=== PATIENT | female | born 1995 | race Caucasian/White ===

== ENCOUNTER 2021-11-08 13:49 | Emergency (ER) | payer MEDICAID, SELFPAY ==
[2021-11-08 14:00] VITALS: BP 117/61; PULSE 126; RESP 20; TEMP 36.8; O2SAT 100; BMI 19.0
[2021-11-08] MEDS: Ondansetron ODT 4 MG TAB.RAPDIS SUBLINGUAL (14:05)
[2021-11-08 16:22] LABS: MANUAL DIFF FLAG NO
[2021-11-08 16:23] LABS: Hematocrit 34.8 % (37.0-47.0); Hemoglobin 11.7 g/dl (12.0-16.0); Imm Gran Abs Auto 0.01 X10*3/uL (0.00-0.03); Imm Gran Pct Auto 0.1 % (0.0-0.4); Lymphocytes Absolute Auto 0.3 X10*3/uL (1.2-4.9); Lymphocytes Percent Auto 4.2 % (20-40); Mean Corpuscular HGB Conc 33.6 g/dl (31.0-35.0); Mean Corpuscular Hemoglobin 30.8 pg (27.0-33.0); Mean Corpuscular Volume 91.6 fL (80.0-98.0); Monocytes Absolute Auto 0.2 X10*3/uL (0.1-1.2); Monocytes Percent Auto 2.8 % (2-11); Neutrophils Absolute Auto 6.4 x10*3/uL (2.0-8.3); Neutrophils Percent Auto 92.9 % (45-73); Platelet Count 196 X10*3/uL (160-400); Red Cell Distribution Width 12.5 % (11.0-16.0); SCAN SMEAR FLAG 1; White Blood Count 6.9 X10*3/uL (4.8-10.8)
[2021-11-08 16:36] LABS: Anion Gap 13 (12-20); Blood Urea Nitrogen 15 mg/dL (9-16); Calcium 9.1 mg/dL (8.4-10.2); Carbon Dioxide 23 mmol/L (22-29); Chloride 105 mmol/L (96-108); Creatinine Clr Calc Pharmacy 112.7; Estimated Glomerular Filt Rate > 60; Glucose Random 103 mg/dL (60-115); Potassium 4.2 mmol/L (3.3-5.1); Sodium 137 mmol/L (135-145)
[2021-11-08 19:47] LABS: Appearance Urine HAZY; Color Urine YELLOW; Glucose Urine UA NEG (NEG); Leukocyte Esterase Urine NEG (NEG); Nitrite Urine NEG (NEG); PH 6.5 (5.0-8.0); Urine Blood NEG (NEG); Urine Ketones >=80 MG/DL (NEG); Urine Protein NEG (NEG-TRACE)
[2021-11-08 19:50] LABS: UPreg QC Valid YES; Urine Pregnancy NEGATIVE (NEGATIVE)
[2021-11-08] MEDS: Acetaminophen 325 MG TABLET 650 MG PO (20:20)
== END 2021-11-08 22:07 | disposition left against medical advice (07) ==
PROVIDERS: Emergency Provider Emergency Medicine
DX: R11.2 Nausea with vomiting, unspecified (principal); M54.9 Dorsalgia, unspecified
CPT/HCPCS: 36415; 80048; 81003; 81025; 85025; 99283

== ENCOUNTER 2021-12-12 20:54 | Emergency (ER) | payer MEDICAID, SELFPAY ==
[2021-12-12 21:09] VITALS: BP 132/92; PULSE 90; RESP 18; TEMP 36.6; O2SAT 99; BMI 18.6
[2021-12-12 21:29] VITALS: BP 119/75; PULSE 92; RESP 16; TEMP 36.8; O2SAT 100
--- NOTE | 2021-12-12 21:33 | PC.NURSE ---
pt a&ox3, vss, pt c/o abd pain starting yesterday while holding urine/waiting to urinate, pain resolved, but came back today around 1900. pt unable to provide urine sample at this time. pending ED provider.
--- NOTE | 2021-12-12 22:43 | ED.ABDPAIN ---
HPI - Abdominal Pain General Chief Complaint: Abdominal Pain Stated Complaint: abdominal pain, back pain Time Seen by Provider: 12/12/21 22:31 Source: patient Mode of arrival: ambulatory Limitations: no limitations History of Present Illness HPI narrative: 26-year-old female who presents emergency department for evaluation of abdominal pain and vaginal discharge. Patient states that over the past 2 days she has noticed a clear liquid the vaginal discharge which is unusual for her. She has also developed lower abdominal pain. She runs or hand across her lower abdomen when asked to localize the pain. She states the pain is an intermittent, sharp pain which is 7/10 at its worst. The patient is and she states she is sexually active. She last had intercourse 2 days prior. She states that the intercourse was painful this is not unusual for her. The patient's last menstrual period was 2 weeks prior. She is a and states that she had a miscarriage in 2020. She denied fever, chills, vomiting, diarrhea, frequency, dysuria. She does have nausea. MD elicited complaint: abdominal pain Onset (ago): day(s) (2) Pain Consistency: intermittent Location: RLQ, LLQ and suprapubic Severity: severe Pain scale (0-10): 7 Quality: sharp Radiation: back (Lower back) Migration to: no migration Exacerbating factors: other ([place]) Relieving factors: nothing Associated symptoms: nausea and other (Clear vaginal discharge) Related Data Date of Last Menstrual Period: 11/28/21 Patient : No Previous Rx's Medication Instructions Recorded doxycycline hyclate 100 mg tablet 100 mg PO Q12H 14 Days #28 tab 12/12/21 metronidazole 500 mg tablet 500 mg PO BID 14 Days #28 tab 12/12/21 Allergies Allergy/AdvReac Type Severity Reaction Status Date / Time No Known Allergies Allergy Verified 11/08/21 14:04 Review of Systems Review of Systems Yes all other systems are reviewed and are negative [facility] Past Medical History FOR[facility] Narrative: Past medical history: Asthma, , 1 miscarriage 2021. Past surgical history: None. Social history: She is . She denies tobacco use. She denies alcohol use. She denies drug use. Medical History Asthma No known health problems Date of Last Menstrual Period: 11/28/21 Social History Social History Alcohol intake: never Patient Tobacco Use Status: Never used Tobacco Use of substances other than those prescribed or required for medical reasons: No Advance Directives: No Advance Directives Information Provided: No Patient : No Physical Exam ED Vital Signs: Vital Signs - 24 hr 12/12/21 21:09 12/12/21 21:29 Temperature 98 F 98.3 F Pulse Rate 90 92 Respiratory Rate 18 16 Blood Pressure 132/92 H 119/75 Pulse Oximetry 99 100 BMI result Body Mass Index 18.6 Const General: cooperative and no acute distress Orientation/consciousness: oriented to person and oriented to place Limitations: no limitations HENMT Head: Yes normal to inspection, Yes normocephalic and Yes atraumatic Ears: external ears normal General nose exam: Normal external nose present Face and sinus: Yes normal facial exam Mouth: Normal oral and palatal mucosa present Throat: Yes posterior oropharynx normal Eyes General: appearance normal, both eyes and all related structures Pupils: Equal, round and reactive pupils present Neck Neck: Yes normal visual inspection, Yes no lymphadenopathy, Yes trachea midline and Yes supple Chest Chest palpation & inspection: normal inspection of the chest and normal palpation of entire chest wall Resp Effort & Inspection: normal respiratory effort and able to speak in complete sentences Auscultation: clear to auscultation bilaterally Cardio Rate: regular rate Rhythm: regular rhythm Heart sounds: S1 normal heart sound present, S2 normal heart sound present and no murmurs GI Inspection: Yes normal to inspection Palpation (GI): Soft to palpation, Tenderness to palpation present (GI) in the LLQ (Mild), in the RLQ (Mild) and suprapubicly (Moderate) and no guarding Auscultation: normal bowel sounds General: Yes no CVA tenderness Back/Spine/Pelvis Back: no CVA tenderness Skin General skin exam: no rashes or lesions noted Neuro General: oriented to person and oriented to place Cranial nerves: Yes CN's II-XII intact bilaterally and Yes Equal, round and reactive pupils present Cognition (Neuro): normal cognition Motor exam (neuro): 5/5 motor strength present throughout Extrem General: Yes normal to inspection Psych Appearance: grossly normal Speech and movement: Normal speech and movement present Affect: normal affect Attitude: cooperative Thought process: Normal thought process present Thought content: Normal thought content present Course Course Course Narrative: 26-year-old female LMP 2 weeks prior, presents emergency department for evaluation of lower abdominal pain and clear vaginal discharge x2 days. Vital signs were normal. Abdominal exam revealed lower abdominal tenderness with increased tenderness in the suprapubic area. Pelvic exam did reveal a whitish cervical discharge, the cervix appears to be inflamed, she had [id number] cervical motion tenderness and tenderness with palpation over her uterus and adnexa bilaterally. Patient's urinalysis was negative and urine test was negative. Patient's presentation physical findings are consistent with pelvic inflammatory disease. The patient was treated with ceftriaxone 500 mg IM, doxycycline 100 mg orally and Flagyl 500 mg orally. She was given a prescription for doxycycline and Flagyl for 14 days. The patient is breast-feeding a 1-1/2-year-old child. I told her to pump and dump for 14 days and then 4 days after completing her medications she can restart breast-feeding. 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 MDM - Abdominal Pain Lab Data Labs: Lab Results 12/12/21 12/12/21 Range/Units 22:31 22:32 Urine Color YELLOW Urine Appearance CLEAR Urine pH 7.0 (5.0-8.0) Ur Specific Roll 1.025 (1.005-1.025) Urine Protein NEG (NEG-TRACE) MG/DL Urine Glucose (UA) NEG (NEG) MG/DL Urine Ketones 5 (NEG) MG/DL Urine Blood NEG (NEG) Urine Nitrite NEG (NEG) Ur Leukocyte Esterase NEG (NEG) Urine Test NEGATIVE (NEGATIVE) Discharge Plan Discharge Clinical Impression: Acute pelvic inflammatory disease Patient Disposition: Home, Self-Care Additional Instructions: Pelvic inflammatory disease instructions: Your presentation and physical findings are consistent with pelvic inflammatory disease (PID). Approximately 30% of the time, pelvic inflammatory disease is caused by sexually transmitted diseases such as Trichomonas, gonorrhea or chlamydia. Approximately 70% of the time, pelvic inflammatory disease is caused by abnormal bacteria (anaerobic bacteria) in your vagina that can cause an infection Medications You received ceftriaxone 500 mg intramuscularly, doxycycline 100 mg and Flagyl (metronidazole) 500 mg here in the emergency department Take doxycycline 100 mg, 1 pill twice a day for 14 days. Take metronidazole 500 mg, 1 pill twice a day for 14 days. These 3 antibiotics treat sexually transmitted diseases such as gonorrhea, chlamydia and Trichomonas as well as anaerobic bacteria that can cause pelvic inflammatory disease. Take ibuprofen 200 mg pills, 3 pills every 6 hours as needed for pain. Take Tylenol (acetaminophen) 500 mg pills, 2 pills every 4 to 6 hours as needed for pain. Follow-Up Follow-up with your gynecology in 10-14 days. Pending laboratory tests: The doctor that follows up will need to review the following results with you: Bacterial vaginosis testing Gonorrhea and chlamydia (cervical swab) Trichomonas testing You can also check these results on the patient portal. Your test today was negative. Your urinalysis was also negative for infection. Breast-feeding instructions: You should pump both breasts and dump the milk out for the next 14 days. If you do not continue to pump your breast milk then you may stop making breast milk. Four days after you complete your antibiotics you can start breast-feeding again. Return precautions: Please return to the emergency department if your symptoms get worse if your pain does not go away in 24-48 hours or if you develop any symptoms that are concerning to you. Prescriptions: New metronidazole 500 mg tablet 500 mg PO BID 14 Days Qty: 28 0RF doxycycline hyclate 100 mg tablet 100 mg PO Q12H 14 Days Qty: 28 0RF
[2021-12-12 22:45] LABS: Appearance Urine CLEAR; Color Urine YELLOW; Glucose Urine UA NEG (NEG); Leukocyte Esterase Urine NEG (NEG); Nitrite Urine NEG (NEG); Specific Gravity - Urine 1.025 (1.005-1.025); Urine Blood NEG (NEG); Urine Ketones 5 MG/DL (NEG); Urine Protein NEG (NEG-TRACE)
[2021-12-12 22:48] LABS: UPreg QC Valid YES; Urine Pregnancy NEGATIVE (NEGATIVE)
[2021-12-12] MEDS: metroNIDAZOLE 500 MG TABLET PO (23:41)
[2021-12-12] MEDS: cefTRIAXone sodium 500 MG, Lidocaine HCl 1 % MPF 1 ML IM (23:42)
--- NOTE | 2021-12-12 23:43 | PC.NURSE ---
I attempted to scan these medicines prior to administering them unsuccessfully. I was unable to log into the computer after multiple attempts. I verified correct med, orrect dose, correct patient, correct route, correct time prior to administering.
[2021-12-13 03:26] LABS: CT PCR NOT DETECTED (Not Detect.); NG PCR NOT DETECTED (Not Detect.)
[2021-12-13 10:52] LABS: BV Int Neg Control Negative (Negative); BV Int Pos Control Positive (Positive)
== END 2021-12-12 23:45 | disposition home or self-care (01) ==
PROVIDERS: Emergency Provider Emergency Medicine Emergency Medical Services
DX: N73.9 Female pelvic inflammatory disease, unspecified (principal); N89.8 Other specified noninflammatory disorders of vagina; M54.50 Low back pain, unspecified; R10.31 Right lower quadrant pain; R10.32 Left lower quadrant pain; Z79.899 Other long term (current) drug therapy
CPT/HCPCS: 81003; 81025; 87480; 87491; 87510; 87591; 87660; 96372; 99284; J0696

== ENCOUNTER 2022-03-12 16:44 | Emergency (ER) | payer MEDICAID, SELFPAY ==
--- NOTE | ~2022-03-12 | XR_ITS ---
EXAMINATION: XR HAND, RIGHT CLINICAL INFORMATION: Pain and swelling COMPARISON: None TECHNIQUE: PA, lateral, and oblique views of the right hand. FINDINGS: Nondisplaced oblique fracture through the neck of the fifth metacarpal. There is soft tissue swelling. The fracture does not involve the articular surfaces. No dislocations. XR/XR hand RT 2V IMPRESSION: Nondisplaced oblique boxer fracture through the neck of the fifth metacarpal.
[2022-03-12 16:49] VITALS: BP 111/84; PULSE 78; RESP 14; TEMP 36.9; O2SAT 98; BMI 19.3
--- NOTE | 2022-03-12 17:28 | PC.NURSE ---
MOTHER REPORTS PATIENTS ANXIETY WAS TOO HIGH TO WAIT TO BE TREATED, PT DID NOT OFFER CONCERNS ABOUT HER ANXIETY DURING TRIAGE. PT LEFT THE WR APPROX 15 MIN AFTER SIGNING IN TO BE SEEN.
== END 2022-03-12 17:28 | disposition left against medical advice (07) ==
PROVIDERS: Emergency Provider Emergency Medicine
DX: S62.366A Nondisplaced fracture of neck of fifth metacarpal bone, right hand, initial encounter for closed fracture (principal); W22.09XA Striking against other stationary object, initial encounter; Y93.9 Activity, unspecified; Y92.9 Unspecified place or not applicable; Y99.9 Unspecified external cause status
CPT/HCPCS: 73120; 99281; 99283

== ENCOUNTER 2022-03-18 00:07 | Emergency (ER) | payer MEDICAID, SELFPAY ==
[2022-03-18 00:17] VITALS: BP 130/82; PULSE 87; RESP 24; TEMP 36.8; O2SAT 100; BMI 19.0
[2022-03-18 00:32] LABS: Basophils Percent Auto 0.3 % (0-2); Eosinophils Absolute Auto 0.2 X10*3/uL (0.0-0.4); Eosinophils Percent Auto 2.6 % (0-4); Hematocrit 33.5 % (37.0-47.0); Hemoglobin 11.4 g/dl (12.0-16.0); Imm Gran Abs Auto 0.01 X10*3/uL (0.00-0.03); Imm Gran Pct Auto 0.2 % (0.0-0.4); Lymphocytes Absolute Auto 3.4 X10*3/uL (1.2-4.9); MANUAL DIFF FLAG NO; Mean Corpuscular Hemoglobin 30.2 pg (27.0-33.0); Mean Corpuscular Volume 88.6 fL (80.0-98.0); Mean Platelet Volume 8.9 fL (9.4-12.3); Monocytes Absolute Auto 0.4 X10*3/uL (0.1-1.2); Monocytes Percent Auto 6.4 % (2-11); Neutrophils Absolute Auto 2.5 x10*3/uL (2.0-8.3); Neutrophils Percent Auto 38.5 % (45-73); Platelet Count 240 X10*3/uL (160-400); Red Blood Count 3.78 X10*6/uL (4.20-5.50); Red Cell Distribution Width 12.6 % (11.0-16.0); White Blood Count 6.4 X10*3/uL (4.8-10.8)
[2022-03-18 00:53] LABS: Anion Gap 16 (12-20); Blood Urea Nitrogen 18 mg/dL (9-16); Calcium 9.9 mg/dL (8.4-10.2); Carbon Dioxide 22 mmol/L (22-29); Chloride 104 mmol/L (96-108); Creatinine Clr Calc Pharmacy 90.4; Estimated Glomerular Filt Rate > 60; Glucose Random 115 mg/dL (60-115); Potassium 3.6 mmol/L (3.3-5.1); Sodium 138 mmol/L (135-145)
[2022-03-18 01:32] LABS: Appearance Urine HAZY; Color Urine YELLOW; Glucose Urine UA NEG (NEG); Leukocyte Esterase Urine NEG (NEG); Nitrite Urine NEG (NEG); Specific Gravity - Urine 1.015 (1.005-1.025); Urine Blood NEG (NEG); Urine Ketones NEG (NEG); Urine Protein NEG (NEG-TRACE)
[2022-03-18 01:34] LABS: UPreg QC Valid YES; Urine Pregnancy NEGATIVE (NEGATIVE)
== END 2022-03-18 04:39 | disposition left against medical advice (07) ==
PROVIDERS: Emergency Provider Emergency Medicine
DX: R10.31 Right lower quadrant pain (principal)
CPT/HCPCS: 36415; 80048; 81003; 81025; 85025; 99282; 99283

== ENCOUNTER 2022-03-29 07:24 | Outpatient (REF) | payer MEDICAID, SELFPAY ==
--- NOTE | ~2022-03-29 | XR_ITS ---
EXAMINATION: XR HAND, RIGHT CLINICAL INFORMATION: Pain in the hand. COMPARISON: 03/12/2022 TECHNIQUE: PA, lateral, and oblique views of the right hand. FINDINGS: Redemonstration of the fracture at the fifth metacarpal neck. Alignment is unchanged. There is some early callus formation. Joint spaces are maintained. XR/XR hand RT min 3V IMPRESSION: Early callus formation at the fifth metacarpal fracture.
== END 2022-03-29 07:25 | disposition home or self-care (01) ==
LOC: HO.HOSX 07:24
PROVIDERS: Visit Provider Physician Assistant
DX: S62.330A Displaced fracture of neck of second metacarpal bone, right hand, initial encounter for closed fracture (principal)
CPT/HCPCS: 29085; 73130; 99202

== ENCOUNTER 2022-04-26 07:21 | Outpatient (REF) | payer MEDICAID, SELFPAY ==
--- NOTE | ~2022-04-26 | XR_ITS ---
EXAMINATION: XR HAND, RIGHT CLINICAL INFORMATION: Pain. Fracture. COMPARISON: Most recent right hand radiographs dated 03/29/2022. TECHNIQUE: PA, lateral, and oblique views of the right hand. FINDINGS: Redemonstration of a 5th metacarpal fracture in unchanged anatomic alignment with interval new bone/callus formation when compared to the prior examination. No new fracture or dislocation. Normal carpal alignment. No joint space narrowing or marginal osteophytes. No osseous erosion. XR/XR hand RT min 3V IMPRESSION: 5th metacarpal fracture in unchanged anatomic alignment with interval new bone/callus formation.
== END 2022-04-26 07:22 | disposition home or self-care (01) ==
LOC: HO.HOSX 07:21
PROVIDERS: Visit Provider Physician Assistant
DX: S62.336D Displaced fracture of neck of fifth metacarpal bone, right hand, subsequent encounter for fracture with routine healing (principal); X58.XXXD Exposure to other specified factors, subsequent encounter
CPT/HCPCS: 73130; 99212

== ENCOUNTER 2024-03-13 16:11 | Emergency (ER) | payer MEDICAID, SELFPAY ==
--- NOTE | 2024-03-13 16:15 | ECG_ITS ---
Test Reason : chest pain Blood Pressure : / mmHG Vent. Rate : 070 BPM Atrial Rate : 070 BPM P-R Int : 142 ms QRS Dur : 088 ms QT Int : 410 ms P-R-T Axes : 047 -22 029 degrees QTc Int : 442 ms Normal sinus rhythm Low voltage QRS Borderline ECG When compared with ECG of 05-APR-2019 17:32, QRS axis Shifted left Referred By: Generic ED Physician Electronically Signed By:KATHRIN PECK MD
[2024-03-13 16:20] VITALS: BP 125/88; PULSE 78; RESP 20; TEMP 36.6; O2SAT 99; BMI 21.9
--- NOTE | 2024-03-13 16:22 | ED.CHESTPAIN ---
HPI - Chest Pain General Chief Complaint: Chest Pain Stated Complaint: Chest pain, hands and face tingling Related Data Previous Rx's ?Medication ?Instructions ?Recorded doxycycline hyclate 100 mg tablet 100 mg PO Q12H 14 days #28 tabs 12/12/21 metronidazole 500 mg tablet 500 mg PO BID 14 days #28 tabs 12/12/21 Allergies Allergy/AdvReac Type Severity Reaction Status Date / Time No Known Allergies Allergy Verified 03/13/24 16:23 PMFSH Past Medical History Medical History Asthma No known health problems Social History Social History Alcohol intake: never Patient Tobacco Use Status: Never used Tobacco Advance Directives: No Advance Directives Information Provided: No Physical Exam Vital Signs: Vital Signs: Last Vital Signs Temp 97.9 F 03/13/24 16:20 Pulse 78 03/13/24 16:20 Resp 20 03/13/24 16:20 BP 125/88 03/13/24 16:20 Pulse Ox 99 03/13/24 16:20 O2 Del Method Room Air 03/13/24 16:20 BMI result Body Mass Index 21.9 Course Course Course Narrative: This is a Rapid Medical Exam performed in triage by Judith Brooks PA-C. Full HPI, ROS and PE to be performed by primary ED provider. 28 year-old F w/ PMHx presenting to the ED c/o intermittent chest pain, SOB, tingling in arms/legs & lips x 2 days. Also reports lightheadedness & heart is racing. Admits sx are improved now compared to when they started PE: anxious, tearful, talking in complete sentences Plan: EKG, labs, CXR Discharge Plan Discharge Clinical Impression: Chest pain Patient Disposition: Left W/O Completing Treatment Prescriptions: No Action metronidazole 500 mg tablet 500 mg PO BID 14 Days Qty: 28 0RF doxycycline hyclate 100 mg tablet 100 mg PO Q12H 14 Days Qty: 28 0RF Discharge Date/Time: 03/13/24 16:54
== END 2024-03-13 16:54 | disposition left against medical advice (07) ==
PROVIDERS: Emergency Provider Emergency Medicine
DX: R07.89 Other chest pain (principal)
CPT/HCPCS: 93005; 99281; 99283

== ENCOUNTER → 2024-03-13 16:15 | Outpatient (BNV) | payer MEDICAID, SELFPAY | PROVIDERS: Emergency Provider Emergency Medicine; Visit Provider Internal Medicine Cardiovascular Disease | DX: R07.9 Chest pain, unspecified (principal); R94.31 Abnormal electrocardiogram [ECG] [EKG] | CPT/HCPCS: 93010 ==